=== PATIENT | female | born 1965 | race Caucasian/White ===

== ENCOUNTER 2019-12-03 12:59 | Emergency (ER) | payer BC, SELFPAY ==
--- NOTE | ~2019-12-03 | CT_ITS ---
EXAMINATION: CT brain wo con DATE: 12/03/2019 13:51 INDICATION: Confusion. Dizziness. TECHNIQUE: Computed tomography (CT) of the head was performed without intravenous contrast. The mA wa s adjusted according to patient size. Iterative reconstruction technique was employed. The dose-lengt h product was 605.33 mGy-cm. COMPARISON: None FINDINGS: There is no intracranial hemorrhage, acute infarction, or abnormal intracranial mass lesion . The ventricles are normal in size. There is mild mucosal thickening in the ethmoid sinuses. The mas toid air cells are normal. The orbits are normal. IMPRESSION: 1. Normal brain. Reviewed, dictated and finalized at location A. 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 Normal brain.
--- NOTE | ~2019-12-03 | XR_ITS ---
EXAMINATION: XR chest 2V DATE: 12/03/2019 13:56 INDICATION: Cough and dyspnea. TECHNIQUE: Frontal and lateral views of the chest were obtained. COMPARISON: Chest 2 views 10/14/2013 FINDINGS: There is mild scarring at the lung apices. No pleural effusion or pneumothorax. The heart s ize is normal. IMPRESSION: 1. Stable mild scarring at the lung apices. Reviewed, dictated and finalized at location A. 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
[2019-12-03 13:03] VITALS: BP 133/83; PULSE 102; RESP 16; TEMP 37.2; O2SAT 97
--- NOTE | 2019-12-03 13:10 | ED.FEVER ---
HPI - Fever General Chief Complaint: Fever Stated Complaint: flu b from [facility] Time Seen by Provider: 12/03/19 13:02 Source: patient and family Mode of arrival: ambulatory Limitations: no limitations History of Present Illness HPI Narrative: A 54 y/o female presents to the ED with c/o flu sx. Per patient's fiance, on 11/30/19 she started to have body aches, fever, chills, and N/V. Her fiance notes that she has not ate normally since 12/01/19 and has only had some tea and chicken broth. Today the patient was diagnosed with Influenza B at an urgent and sent to the ED due to the patient being disoriented and having trouble ambulating. Pt reports CP, productive cough, and hip pain. The cough produces a green phlegm. She does not note any aggravating or alleviating factors for her symptoms. Pt uses marijuana 1-2 times per week and drinks one glass of wine per night. MD elicited complaint: other (Flu sx) Onset (ago): day(s) (3) Exacerbating factors: nothing Relieving factors: nothing Associated symptoms: chills, cough (Productive), chest pain, nausea, vomiting and other (Body aches, fever, decreased food intake, hip pain, confusion, trouble ambulating) Related Data Allergies Allergy/AdvReac Type Severity Reaction Status Date / Time Sulfa (Sulfonamide Allergy Intermediate Dyspnea / Verified 12/10/15 03:40 Antibiotics) SOB STRAWBERRIES Allergy Intermediate Dyspnea / Uncoded 12/10/15 03:40 SOB EGGS Allergy Unknown Uncoded 12/09/15 22:55 GRASS Allergy Unknown Uncoded 12/09/15 22:55 POLLEN Allergy Unknown Uncoded 12/09/15 22:55 Review of Systems Review of Systems: Narrative: CONSTITUTIONAL: Denies sweats. Reports fever, chills, body aches, and decreased food intake. EYES: Denies visual changes, redness, or discharge. ENT: Denies rhinorrhea, congestion, sore throat, or otalgia. CARDIOVASCULAR: Denies palpitations or edema. Reports chest pain. RESPIRATORY: Denies dyspnea. Reports productive cough. GASTROINTESTINAL: Denies abdominal pain or diarrhea. Reports nausea and vomiting. SKIN: Denies rash or itching. MUSCULOSKELETAL: Denies back pain, joint pain, or myalgia. Reports hip pain. NEUROLOGIC: Denies headache, numbness, or weakness. Reports confusion and trouble ambulating. All systems reviewed & are unremarkable except as noted in HPI and below PMFSH Past Medical History Medical History (Updated 12/03/19 @ 16:42 by Karlee Horta MD) Anxiety Meningitis Seasonal allergies Shingles Surgical History Surgical History (Updated 12/03/19 @ 13:29 by Alexandra Yeager) History of appendectomy History of hysterectomy Social History Social History (Updated 12/03/19 @ 13:29 by Alexandra Yeager) Smoking status: Current every day smoker Tobacco type: cigarettes Second hand tobacco smoke exposure: Yes Alcohol intake: current Alcohol use details: 1 glass of wine per night Substance use: current Substance use type: marijuana Exam Narrative: Exam Narrative: GENERAL: Well-appearing, well-nourished, and in no acute distress. HEAD: Normocephalic, atraumatic. EYES: PERRLA and EOMI. ENT: Nares clear, no rhinorrhea or epistaxis. Mucous membranes moist. NECK: Supple. CHEST: Clear to auscultation. No respiratory distress. HEART: Regular rate and rhythm. No murmur heard. Normal peripheral pulses. ABDOMEN: Soft, nontender, nondistended, normal active bowel sounds. EXTREMITIES: Normal range of motion. No edema. SKIN: Warm, dry, no rash. NEURO: No focal deficits. Alert and oriented X3. Finger to nose intact bilaterally. EOMs intact without nystagmus. No facial droop/asymmetry noted bilaterally. Grimace intact. Intact sensation in face. Hearing intact bilaterally. Shoulder shrug intact. Strength 5/5 bilateral upper extremities. Strength 5/5 bilateral lower extremities. Reflexes 2+ patellar. Heel to ledesma intact bilaterally. Ambulatory exam deferred. Course Vital Signs Vital signs: Vital Signs Temperature 37.2 C 12/03/19 13:03 Pul
[2019-12-03 13:21] VITALS: RESP 16
--- NOTE | 2019-12-03 13:25 | ECG_ITS ---
Measurements Intervals [place] Rate: 79 P: 63 [place]: 139 QRS: 66 QRSD: 87 T: 67 QT: 390 QTc: 449 Interpretive Statements SINUS RHYTHM POSSIBLE LEFT ATRIAL ENLARGEMENT INCOMPLETE RIGHT BUNDLE BRANCH BLOCK BORDERLINE ECG Electronically Signed On 12-03-2019 16:16:42 CUSTOMER SOLUTIONS TEAMMATE by Fam Good D.O.
[2019-12-03 13:52] LABS: Basophils Absolute Auto 0.1 K/mm3 (0.0-0.1); Basophils Percent Auto 0.5 % (0.2-1.2); Hematocrit 43.2 % (37.0-47.0); Hemoglobin 14.9 g/dL (12.0-15.0); Immature Granulocyte Absolute 0.04 K/mm3 (0.00-0.031); Immature Granulocyte Percent A 0.3 % (0-0.5); Lymphocytes Absolute Auto 1.12 K/mm3 (0.9-3.2); Lymphocytes Percent Auto 9.3 % (18.3-44.2); Mean Corpuscular HGB Conc 34.5 g/dl (32-36); Mean Corpuscular Hemoglobin 34.7 pg (26-34); Mean Corpuscular Volume 100.5 fl (80-100); Monocytes Percent Auto 8.1 % (2.6-8.5); Neutrophils Absolute Auto 9.8 K/mm3 (1.3-6.7); Neutrophils Percent Auto 81.8 % (45.5-73.1); Platelet Count Result 284 k/mm3 (150-375); Red Cell Distribution Width 13.3 % (11.5-14.5)
[2019-12-03 14:04] LABS: Acetaminophen < 10 ug/mL (10-30); Ethanol < 10 mg/dL (<10); Lactic Acid Reflex 0.8 mmol/L (0.7-2.1); Salicylate < 1.0 mg/dL (2-20)
--- NOTE | 2019-12-03 14:15 | PC.NURSE ---
Pt refusing lumbar puncture. Necessity of the LP explained to pt by Dr. Horta and myself but she continues to refuse.
[2019-12-03 14:25] LABS: INR 0.9; Prothrombin Time 11.6 Seconds (11.1-14.7)
[2019-12-03 14:26] LABS: Partial Thromboplastin Time 28.5 SECONDS (22.3-36.8)
[2019-12-03 14:30] LABS: Alanine Aminotransferase 15 U/L (4-35); Albumin Level 3.9 g/dL (3.5-5.1); Alkaline Phosphatase 75 U/L (38-126); Aspartate Amino Transferase 27 U/L (14-36); Bilirubin,Total 0.3 mg/dL (0.2-1.3); Blood Urea Nitrogen 10 mg/dL (7-17); CRP 2.4 mg/dL (<1.0); Calcium 8.7 mg/dL (8.4-10.2); Carbon Dioxide 25 mmol/L (22-30); Chloride 96 mmol/L (98-107); Estimated Glomerular Filt Rate > 60; Glucose 105 mg/dL (65-105); Lipase 61 U/L (23-300); Potassium 3.6 mmol/L (3.4-5.0); Sodium 135 mmol/L (137-145)
[2019-12-03] MEDS: SODIUM CHLORIDE 0.9% IV 1,000 ML 999 ML IV CONT ×3 (14:30→15:25)
[2019-12-03] MEDS: KETOROLAC 15 MG/ML VIAL (*BKC) IV PUSH (14:30)
[2019-12-03] MEDS: ACETAMINOPHEN 500 MG TABLET 1000 MG PO (14:30)
[2019-12-03 16:18] VITALS: BP 137/85; PULSE 83; RESP 14; O2SAT 96
[2019-12-03 16:37] LABS: Add Urine Microscopic? YES; Appearance Urine Clear (Clear); Bacteria Urine Trace /hpf; Bilirubin Urine Negative (Negative); Blood Urine Negative (Negative); Color Urine Yellow (Yellow); Glucose Urine UA Negative (Negative); Ketones Urine Trace mg/dL (Negative); Leukocyte Esterase Ur Negative LEU/UL (Negative); Mucus Urine Rare /lpf; Nitrate Urine Negative (Negative); Protein Urine Negative (Negative); RBC Urine 0-2 /hpf (0-2); Squamous Epithelial Cell Urine Occasional /hpf (Few); Urobilinogen Urine Negative mg/dL (<2.0); WBC Urine 0-3 /hpf
[2019-12-03 16:56] LABS: Amphetamine Screen Urine Negative (Negative); Barbiturate Screen Urine Negative (Negative); Benzodiazepines Screen Urine Negative (Negative); Cannabinoid Screen Urine Positive (Negative); Cocaine Screen Urine Negative (Negative); Methadone Screen Urine Negative (Negative); Opiate Screen Urine Negative (Negative); Phencyclidine Screen Urine Negative (Negative)
[2019-12-03 17:05] VITALS: BP 128/86; PULSE 90; RESP 16; O2SAT 98
== END 2019-12-03 17:10 | disposition home or self-care (01) ==
PROVIDERS: Emergency Provider Emergency Medicine; PCP Family Medicine
DX: J10.1 Influenza due to other identified influenza virus with other respiratory manifestations (principal); E86.0 Dehydration; F17.210 Nicotine dependence, cigarettes, uncomplicated; I45.10 Unspecified right bundle-branch block; R94.31 Abnormal electrocardiogram [ECG] [EKG]
CPT/HCPCS: 36415; 70450; 71046; 80053; 80307; 81001; 83605; 83690; 85025; 85610; 85730; 86140; 87040; 93005; 96365; 96367; 96375; 99284; A9270; J0692; J1885; J3370; J7030

== ENCOUNTER 2020-02-14 10:55 | Outpatient (CLI) | payer BC, SELFPAY ==
--- NOTE | ~2020-02-14 | XR_ITS ---
XR chest 2V DATE: 02/14/2020 11:13 INDICATION: Cough, fever TECHNIQUE: PA and lateral views COMPARISON: 12/02/2021 view chest FINDINGS: Normal heart size. No hilar or mediastinal enlargement. No pulmonary infiltrate or consolid ation, pleural effusion or pulmonary vascular congestion or pneumothorax. IMPRESSION: No active cardiopulmonary disease Reviewed, dictated and finalized at location A.
== END 2020-02-14 10:56 | disposition home or self-care (01) ==
PROVIDERS: PCP Family Medicine; Visit Provider Family Medicine
DX: R05 Cough (principal); R50.9 Fever, unspecified
CPT/HCPCS: 71046

== ENCOUNTER 2022-01-12 11:54 | Outpatient (CLI) | payer BC, SELFPAY ==
--- NOTE | ~2022-01-12 | CT_ITS ---
EXAMINATION: CT brain wo con DATE: 01/12/2022 12:46 INDICATION: Altered mental status, unspecified. TECHNIQUE: Computed tomography (CT) of the head was performed without intravenous contrast. The mA wa s adjusted according to patient size. Iterative reconstruction technique was employed. The dose-lengt h product was 529.67 mGy-cm. COMPARISON: Head CT 12/03/2019 FINDINGS: There is no intracranial hemorrhage, acute infarction, or abnormal intracranial mass lesion . The ventricles are normal in size. The paranasal sinuses are clear. The orbits are normal. The mast oid air cells are normal. IMPRESSION: 1. Normal brain. Reviewed, dictated and finalized at location A. IMPRESSION: 1. Normal brain.
== END 2022-01-12 11:55 | disposition home or self-care (01) ==
PROVIDERS: PCP Family Medicine; Visit Provider Physician Assistant Medical
DX: R41.82 Altered mental status, unspecified (principal)
CPT/HCPCS: 70450

== ENCOUNTER 2023-02-01 11:47 | Emergency (ER) | payer BC, SELFPAY ==
[2023-02-01] VITALS (56 sets, daily range): BP systolic 105–157; BP diastolic 62–104; PULSE 72–115; RESP 12–27; O2SAT 90–100
--- NOTE | ~2023-02-01 | CT_ITS ---
EXAMINATION: CTA abdomen pelvis DATE: 02/01/2023 13:11 INDICATION: Suprapubic abdominal pain. Blood in stool. TECHNIQUE: Computed tomographic angiography (CTA) of the abdomen and pelvis was performed with 100 mL Omnipaque-350 intravenous contrast. Automated exposure control and iterative reconstruction techniqu e were employed. The dose-length product was 200.10 mGy-cm. Maximum intensity projection 3D-reconstru ctions of the aorta and other arteries were constructed by the technologist on a separate workstation . COMPARISON: CT abdomen and pelvis 12/09/15 FINDINGS: The visualized portions of the lung bases demonstrate minimal atelectasis. No pleural effus ion. The heart size is normal. No pericardial effusion. The liver, gallbladder, spleen, pancreas, adr enal glands, and kidneys are normal. There is wall thickening of the descending and sigmoid colon, co nsistent with colitis. There are no dilated loops of bowel. The appendix is not visualized. There are no pathologically enlarged lymph nodes. There is no free intraperitoneal fluid. There is calcified a therosclerosis of the aorta and many of the other arteries. There is no significant stenosis of shasta c axis, superior mesenteric artery, the renal arteries, or inferior mesenteric artery. There is mild lumbar spondylosis. IMPRESSION: 1. Colitis involving descending and sigmoid colon, which may be infectious colitis or ischemic coliti s. 2. No significant arterial occlusive disease. Reviewed, dictated and finalized at location A. IMPRESSION: 1. Colitis involving descending and sigmoid colon, which may be infectious coli tis or ischemic colitis. 2. No significant arterial occlusive disease.
--- NOTE | 2023-02-01 12:16 | ED.ABDPAIN ---
HPI - Abdominal Pain General Chief Complaint: Abdominal Pain Stated Complaint: lower abdominal pain/rectal bleeding Time Seen by Provider: 02/01/23 12:15 History of Present Illness HPI narrative: This is a 57-year-old female with past history of volvulus, who presents the emergency department with severe suprapubic pain and hematochezia beginning approximately 14 hours ago. The patient states she had sudden onset lower abdominal pain, described as cramping and sharp, without radiation, rated 10/10 and worse than labor. She also states she has had bowel movements with west blood and blood clots. She provides a picture of the same time stamped this morning, approximately 2 hours ago. Related Data Home Medications Medication Instructions Recorded Confirmed Adults Multivitamin 1 tablet DAILY 02/01/23 02/01/23 Claritin 1 tablet DAILY 02/01/23 02/01/23 ibuprofen 400 mg DAILY 02/01/23 02/01/23 Allergies Allergy/AdvReac Type Severity Reaction Status Date / Time strawberry Allergy Unknown Verified 02/01/23 11:58 Sulfa (Sulfonamide Allergy Unknown Verified 02/01/23 11:58 Antibiotics) Review of Systems Review of Systems: CONSTITUTIONAL: Denies fever, chills, or sweats. CARDIOVASCULAR: Denies chest pain, palpitations, or edema. RESPIRATORY: Denies cough or dyspnea. GASTROINTESTINAL: Suprapubic abdominal pain, nausea, vomiting, hematochezia GENITOURINARY: Denies dysuria or hematuria. SKIN: Denies rash or itching. MUSCULOSKELETAL: Denies back pain, joint pain, or myalgia. NEUROLOGIC: Denies headache, numbness, dizziness, or weakness. PSYCHIATRIC: Denies anxiety or depression. PMFSH Past Medical History Medical History (Updated 02/01/23 @ 18:21 by Jose Manuel Eckert MD) Volvulus Surgical History Surgical History (Updated 02/01/23 @ 12:19 by Jose Manuel Eckert MD) Status post hysterectomy Social History Social History (Updated 02/01/23 @ 12:19 by Jose Manuel Eckert MD) Smoking status: Current every day smoker Alcohol intake: current Substance use: current Substance use type: marijuana Exam Narrative: GENERAL: Well-developed, well-nourished, in moderate distress due to pain HEAD: Normocephalic, atraumatic. EYES: PERRLA and EOMI. ENT: Nares clear, no rhinorrhea or epistaxis. Mucous membranes moist. Oropharynx without tonsillar hypertrophy exudate or other lesions. CHEST: Clear to auscultation. No respiratory distress. No wheezes rales or rhonchi HEART: Regular rate and rhythm. No murmur heard. Normal peripheral pulses. ABDOMEN: Soft, tender to palpation in the suprapubic region, with passive guarding and rebound, nondistended RECTAL: (Chaperoned by female RN Minal) An external hemorrhoid is noted at the 6 o'clock position. There is no active bleeding. No blood, stool or significant pain noted on digital rectal exam. BACK: No CVA tenderness to palpation EXTREMITIES: Normal range of motion. No edema. SKIN: Warm, dry, no rash. NEURO: No focal deficits. Alert and oriented x3. PSYCH: Normal mood and affect. Course Course Emergency Course: 13:20 - CT angiogram of the abdomen pelvis demonstrates?colitis involving descending and sigmoid colon without arterial occlusive disease. CBC demonstrates white blood cell count elevation to 12 with a hemoglobin of 14.5 (unknown baseline) and platelets of 333. CMP unremarkable. VBG demonstrates mild respiratory alkalosis with pH of 7.44 and PCO2 of 35 9. Lactic acid 1.5. INR 0.9. Will give a dose of Zosyn, repeat hemoglobin, and contact GI at [facility] for potential transfer. 14:44 - Repeat hemoglobin unchanged at 14.8. Consultation with GI at [place] pending. The patient politely declines transfer to an alternate hospital. 15:22 - Discussed patient with GI, Dr. Cobos for consultation. 18:18 - Discussed patient with Hospitalist KELY Pacheco who accepts admission. 19:09 - EMS at bedside. Vital Signs Vital signs: Vital Signs Pu
[2023-02-01] MEDS: SODIUM CHLORIDE 0.9% IV 2,000 ML 999 ML IV CONT (12:30)
[2023-02-01] MEDS: ONDANSETRON INJ 4 MG/2 ML VIAL IV PUSH (12:30)
[2023-02-01] MEDS: HYDROmorphone HCL INJ (*CRX) 2 MG/ML VIAL 1 MG IV PUSH (12:31)
[2023-02-01 12:35] LABS: Basophils Absolute Auto 0.07 K/mm3 (0.00-0.10); Basophils Percent Auto 0.6 % (0.0-1.0); Eosinophils Absolute Auto 0.01 K/mm3 (0.02-0.50); Eosinophils Percent Auto 0.1 % (1.0-6.0); Hematocrit 43.3 % (35.0-49.0); Hemoglobin 14.5 g/dL (12.0-15.0); Immature Granulocyte Absolute 0.03 K/mm3 (0.00-0.00); Immature Granulocyte Percent A 0.2 % (0.0-0.0); Lymphocytes Absolute Auto 1.52 K/mm3 (1.10-4.50); Lymphocytes Percent Auto 12.6 % (18.0-42.0); Mean Corpuscular HGB Conc 33.5 g/dL (32.0-36.0); Mean Corpuscular Hemoglobin 34.9 pg (27.0-31.0); Mean Corpuscular Volume 104.1 fL (78.0-102.0); Mean Platelet Volume 8.8 fl (9.2-11.8); Monocytes Absolute Auto 0.97 K/mm3 (0.10-0.90); Neutrophils Absolute Auto 9.5 K/mm3 (1.7-7.2); Neutrophils Percent Auto 78.5 % (50.0-70.0); Platelet Count Result 333 K/mm3 (150-420); Red Blood Count 4.16 M/mm3 (4.20-5.40); Red Cell Distribution Width 12.9 % (11.6-14.4); White Blood Count 12.1 K/mm3 (4.8-10.8)
[2023-02-01 12:36] LABS: Device ROOM AIR; HCO3 VBG 24.1 mEq/l (24.0-30.0); PCO2 VBG 35.9 mmHg (42.0-48.0); pH VBG 7.44 (7.33-7.43)
[2023-02-01 12:50] LABS: Alanine Aminotransferase 21 U/L (14-59); Albumin Level 3.8 g/dL (3.4-5.0); Alkaline Phosphatase 80 U/L (46-116); Anion Gap 11 mmol/L (8-16); Aspartate Amino Transferase 15 U/L (15-37); Bilirubin,Total 0.5 mg/dL (0.00-1.00); Blood Urea Nitrogen 10 mg/dL (7-18); Carbon Dioxide 28 mmol/L (21-32); Chloride 101 mmol/L (98-108); Estimated Glomerular Filt Rate > 60; Glucose 158 mg/dL (70-99); INR 0.9; Lipase 17 U/L (16-77); Osmolality Calculated 292 mOsm/kg (285-295); Partial Thromboplastin Time 27.2 SEC (23.90-30.70); Potassium 3.5 mmol/L (3.5-5.1); Prothrombin Time 10.4 Seconds (9.50-12.10); Sodium 140 mmol/L (136-145); Total Protein 7.2 g/dL (6.4-8.2)
[2023-02-01 13:08] LABS: Lactic Acid Reflex 1.5 mmol/L (0.4-2.0)
--- NOTE | 2023-02-01 13:24 | PC.NURSE ---
Per ERP, repeat hgb to be drawn at 2 hours. microbiology lab technician aware. ERP at bedside discussing plan of care and potential transfer.
--- NOTE | 2023-02-01 13:53 | PC.NURSE ---
Pt updated. Lab will wait to draw blood cultures when repeat hgb is due. Antibiotics will be given after cultures are drawn.
[2023-02-01 14:39] LABS: Hematocrit 45.3 % (35.0-49.0); Hemoglobin 14.8 g/dL (12.0-15.0)
[2023-02-01] MEDS: HYDROmorphone HCL INJ (*CRX) 2 MG/ML VIAL 0.5 MG IV PUSH ×2 (14:50→19:06)
--- NOTE | 2023-02-01 15:01 | PC.NURSE ---
Dane Machine Group Leader states no beds available currently, but multiple discharges are pending. States it will most likely be later this evening before something is available. ERP at bedside discussing transfer options.
--- NOTE | 2023-02-01 17:30 | PC.NURSE ---
Spoke with Esther, Acetylene Torch Operator, who states he will be contacting hospitalist soon to get transfer started.
--- NOTE | 2023-02-07 12:47 | PC.NURSE ---
final blood cultures x2 reviewed. no growth after 5 days . no change in plan of care.
== END 2023-02-01 19:17 | disposition short-term general hospital (02) ==
PROVIDERS: Emergency Provider Preventive Medicine Aerospace Medicine; PCP Family Medicine
DX: K52.9 Noninfective gastroenteritis and colitis, unspecified (principal); R10.30 Lower abdominal pain, unspecified; R00.0 Tachycardia, unspecified; K92.1 Melena; F17.200 Nicotine dependence, unspecified, uncomplicated; F12.90 Cannabis use, unspecified, uncomplicated
CPT/HCPCS: 36415; 74174; 80053; 82803; 83605; 83690; 85014; 85018; 85025; 85610; 85730; 87040; 96361; 96365; 96375; 96376; 99285; J1170; J2405; J2543; J7030; Q9967

== ENCOUNTER 2023-02-01 19:49 | Observation (INO) | payer BC, SELFPAY ==
[2023-02-01 20:20] VITALS: BP 122/83; PULSE 81; RESP 14; TEMP 37.1; O2SAT 100; BMI 22.9
--- NOTE | 2023-02-01 20:20 | PM.IMHP ---
H&P: HPI History of Present Illness Date/Time: 02/01/23 20:20 Chief Complaint: Abdominal pain Narrative: This is a 57-year-old female patient who has no past medical history. It was noted that she may have possibly had volvulus in the past but no surgeries noted. The patient presented to [place] emergency room with complaints of severe suprapubic pain. She also had he med sheet the that began in the mill a night. The patient has not had any colonoscopies in the past. The patient had a sudden onset of lower abdominal pain that she described as a cramping short feeling that feels worse than being in labor. She rated her pain 10/10. She had normal bowel movements previously. And then in the middle the night she had west blood with clots. She denies any hemorrhoids internally or externally. Patient continued to have several bloody stools during the night. She also continue to have severe discomfort. The patient was given Dilaudid at [facility]. According to Dr. Sparks at [facility] her CT scan shows inflammatory colitis. Could be infectious. The patient tells me that she does have severe arthritis and that she had been taking Celebrex but it upset her stomach so she has been taking naproxen twice a day. Patient did have 1 emesis during the night but did not notice any blood. It was reported that the patient was tachycardic at [facility]. It was also reported that Dr. Cobos had been notified and agreed to see the patient if she came to [facility]. The patient is being admitted to [facility] observation status on the date of service of 02/01/2023. Review of Systems Review of Systems: All systems reviewed & are unremarkable except as noted in HPI and below Constitutional: Constitutional: Reports as per HPI and Reports no additional constitutional complaints Eyes: Eyes: Reports as per HPI and Reports no additional eye complaints ENT: Reports system reviewed and no additional complaints, except as documented and Reports Normal hearing present Cardiovascular: Cardiovascular: Reports no additional cardiovascular complaints Respiratory: Respiratory: Reports no additional respiratory complaints and Reports no additional respiratory complaints Gastrointestinal: Gastrointestinal: Reports as per HPI and Reports no additional gastrointestinal complaints Musculoskeletal: Musculoskeletal: Reports no additional musculoskeletal complaints Integumentary/Breasts: Skin/Breast: Reports system reviewed and no additional complaints, except as docu and Reports as per HPI Neurologic: Reports system reviewed and no additional complaints, except as documented, Reports as per HPI and Reports Normal hearing present Psychiatric: Psychiatric: Reports no additional psychiatric complaints and Reports as per HPI Endocrine: Endocrine: Reports no additional endocrine complaints Hematologic/Lymphatic: Hematologic/Lymphatic: Reports no additional hematologic/lymphatic complaints Allergic/Immunologic: Allergic/Immunologic: Reports no additional allergic/immunologic complaints PMFSH Past Medical History Medical History Altered mental state Anxiety Fall Meningitis Need for Tdap vaccination Seasonal allergies Shingles Surgical History Surgical History History of appendectomy History of hysterectomy Family History Family History (Updated 02/01/23 @ 20:31 by Tara Hackett NP) Mother Osteoarthritis Sibling Osteoarthritis Father Benign brain tumor Social History Social History (Updated 02/01/23 @ 20:36 by Tara Hackett NP) Social History: The patient stated that she does smoke a little more than a half pack a cigarettes a day and drinks 3 cans of beer a day. She has 1 daughter and is . The patient works at [employer] the [employer] department. Her ex- is a durable
--- NOTE | 2023-02-01 20:34 | ADMGEN ---
This patient, Serena Orellana, was admitted to [facility] Surg Room 306-01. Patient/family oriented to hospital policies and general routines including ID bracelet, bed and alarms, visiting hours, pain management, procedures, bathroom and other care routines, personal items, smoking policy, room service/diet, and visiting hours. Information on how to activate the Rapid Response Team has been discussed. Patient/Family are encouraged to report perceived risks to care and to ask questions if they do not understand what they are told or what they should do.
[2023-02-01 20:37] VITALS: PULSE 76; RESP 14; O2SAT 96
[2023-02-01] MEDS: HYDROmorphone HCL INJ (*CRX) 1 MG/ML SYR IV PUSH (20:53)
[2023-02-01 21:47] LABS: Hematocrit 40.6 % (37.0-47.0); Hemoglobin 13.4 g/dL (12.0-15.0)
[2023-02-01] MEDS: SODIUM CHLORIDE 0.9% IV 1,000 ML 100 ML IV CONT (22:02)
[2023-02-01] MEDS: FAMOTIDINE 20 MG/2 ML VIAL IV PUSH (22:02)
[2023-02-01] MEDS: metroNIDAZOLE 500 MG/ISO 100ML 500 MG/100 ML BAG 100 MG IVPB (22:30)
[2023-02-02] VITALS: BP 118/64; PULSE 76; PULSE 77; RESP 14; TEMP 36.5; O2SAT 96
[2023-02-02] MEDS: HYDROmorphone HCL INJ (*CRX) 1 MG/ML SYR IV PUSH (01:55)
[2023-02-02 01:59] LABS: Appearance Urine Cloudy (Clear); Bacteria Urine None Seen /hpf; Bilirubin Urine Negative (Negative); Blood Urine Negative (Negative); Color Urine Yellow (Yellow); Glucose Urine UA Negative (Negative); Ketones Urine Negative (Negative); Leukocyte Esterase Ur Trace LEU/UL (Negative); Nitrate Urine Negative (Negative); Non Pathogenic Casts 0-2; Protein Urine Negative (Negative); RBC Urine 0-2 /hpf (0-2); Squamous Epithelial Cell Urine Few /hpf (Few); Urobilinogen Urine 0.2 mg/dL (<2.0); pH Urine 5.5 (5.0-9.0)
[2023-02-02 02:18] LABS: Specific Grav Ur 1.039 (1.001-1.035)
[2023-02-02 02:19] LABS: Add Urine Microscopic? YES
[2023-02-02 04:00] VITALS: BP 117/73; PULSE 71; PULSE 85; RESP 14; TEMP 36.3; O2SAT 95
[2023-02-02 04:15] LABS: Basophils Absolute Auto 0.1 K/mm3 (0.0-0.1); Basophils Percent Auto 0.7 % (0.2-1.2); Eosinophils Absolute Auto 0.2 K/mm3 (0-0.3); Eosinophils Percent Auto 1.6 % (0-4.4); Hematocrit 37.5 % (37.0-47.0); Hemoglobin 12.4 g/dL (12.0-15.0); Immature Granulocyte Absolute 0.03 K/mm3 (0.00-0.031); Immature Granulocyte Percent A 0.3 % (0-0.5); Lymphocytes Absolute Auto 3.23 K/mm3 (0.9-3.2); Lymphocytes Percent Auto 29.6 % (18.3-44.2); Mean Corpuscular HGB Conc 33.1 g/dl (32-36); Mean Corpuscular Hemoglobin 35.1 pg (26-34); Mean Corpuscular Volume 106.2 fl (80-100); Mean Platelet Volume 9.1 fl (7.4-10.4); Monocytes Percent Auto 9.1 % (2.6-8.5); Neutrophils Absolute Auto 6.4 K/mm3 (1.3-6.7); Neutrophils Percent Auto 58.7 % (45.5-73.1); Platelet Count Result 286 k/mm3 (150-375); Red Blood Count 3.53 M/mm3 (4.2-5.4); Red Cell Distribution Width 13.2 % (11.5-14.5); White Blood Count 10.9 K/mm3 (4.5-10.0)
[2023-02-02 04:27] LABS: Alanine Aminotransferase 16 U/L (6-35); Albumin Level 3.7 g/dL (3.5-5.1); Alkaline Phosphatase 61 U/L (38-126); Anion Gap 2 mmol/L (8-16); Aspartate Amino Transferase 20 U/L (14-36); Bilirubin,Total 0.9 mg/dL (0.2-1.3); Blood Urea Nitrogen 8 mg/dL (7-17); Calcium 8.2 mg/dL (8.4-10.2); Carbon Dioxide 27 mmol/L (22-30); Chloride 107 mmol/L (98-107); Estimated Glomerular Filt Rate > 60; Glucose 110 mg/dL (65-110); Magnesium 2.1 mg/dL (1.6-2.3); Potassium 3.3 mmol/L (3.4-5.0); Sodium 136 mmol/L (137-145)
[2023-02-02 04:40] LABS: Lactic Acid Reflex 0.8 mmol/L (0.7-2.0)
[2023-02-02] MEDS: metroNIDAZOLE 500 MG/ISO 100ML 500 MG/100 ML BAG 100 MG IVPB (05:58)
[2023-02-02 08:00] VITALS: BP 130/68; PULSE 75; RESP 16; TEMP 36.6; O2SAT 100
--- NOTE | 2023-02-02 08:15 | PC.NURSE ---
Greeted patient and attempted assessment. Patient oriented to person, place, time, situation and independent in the room. Patient is extremely frustrated not understanding why she cannot be seen right now by all of the doctors and get her situation fixed right now. M48 M60 Armor Crewman explained the process to the patient and that the doctors have several patients that they see in a shift and they will be here to see her once they are available. M48 M60 Armor Crewman went over medications scheduled to give this AM. Patient stated she does not need the pepcid as she is fine. M48 M60 Armor Crewman asked patient if she wanted a nicotine patch. Patient stated if she wants to smoke she will go outside and do so. M48 M60 Armor Crewman explain that the hospital does not allow patients to leave the floor while they have IV access. Patient responded that she will just take her IV out herself then. Patient then stated that she will be leaving and she will be setting up her own appointment today with her primary care physician. M48 M60 Armor Crewman explained to the patient that she has the right to make her own medical decisions although hospital staff encourages her greatly to stay for treatment as she has been admitted for treatment, a GI consultation put in, and currently has a low potassium level this AM. Patient stated she did not care and that she still wanted to leave. M48 M60 Armor Crewman presented patient with AMA papers. Patient and press writer both signed papers. IV access was removed. Patient walked herself out.
== END 2023-02-02 09:00 | disposition left against medical advice (07) ==
PROVIDERS: Nurse Practitioner; Admitting Provider Hospitalist; PCP Family Medicine; Visit Provider Physician Assistant
DX: Z53.29 Procedure and treatment not carried out because of patient's decision for other reasons (principal); K92.2 Gastrointestinal hemorrhage, unspecified; K52.9 Noninfective gastroenteritis and colitis, unspecified; R00.0 Tachycardia, unspecified; R41.82 Altered mental status, unspecified; F41.9 Anxiety disorder, unspecified; F17.210 Nicotine dependence, cigarettes, uncomplicated; F10.20 Alcohol dependence, uncomplicated; F12.90 Cannabis use, unspecified, uncomplicated; Z86.61 Personal history of infections of the central nervous system; Z79.1 Long term (current) use of non-steroidal anti-inflammatories (NSAID); Z79.51 Long term (current) use of inhaled steroids
CPT/HCPCS: 36415; 80053; 81001; 83605; 83735; 84443; 85014; 85018; 85025; 86850; 86900; 86901; 87040; 87086; 96365; 96366; 96375; 96376; G0378; G0379; J1170; J7030

== ENCOUNTER 2023-02-22 16:04 | Outpatient (CLI) | payer BC, SELFPAY ==
[2023-02-22 17:59] LABS: Ferritin 208 ng/mL (8-252); Iron 53 ug/dL (50-170); Percent Iron Saturation 25 % (12-57); Vitamin B12 1164 pg/mL (193-986)
[2023-02-23 02:01] LABS: Folic Acid > 20.0 ng/mL (8.6->20)
== END 2023-02-22 16:05 | disposition home or self-care (01) ==
LOC: CHSLAB 16:07
PROVIDERS: PCP Nurse Practitioner Family; Visit Provider Internal Medicine Gastroenterology
DX: R79.9 Abnormal finding of blood chemistry, unspecified (principal)
CPT/HCPCS: 36415; 82525; 82607; 82728; 82746; 83540; 83550

== ENCOUNTER 2023-03-03 12:26 | Outpatient (CLI) | payer BC, SELFPAY ==
[2023-03-03 12:45] LABS: Basophils Absolute Auto 0.08 K/mm3 (0.00-0.10); Basophils Percent Auto 0.7 % (0.0-1.0); Eosinophils Absolute Auto 0.11 K/mm3 (0.02-0.50); Hematocrit 45.6 % (35.0-49.0); Hemoglobin 15.1 g/dL (12.0-15.0); Immature Granulocyte Absolute 0.03 K/mm3 (0.00-0.00); Immature Granulocyte Percent A 0.3 % (0.0-0.0); Lymphocytes Absolute Auto 2.24 K/mm3 (1.10-4.50); Lymphocytes Percent Auto 20.3 % (18.0-42.0); Mean Corpuscular HGB Conc 33.1 g/dL (32.0-36.0); Mean Corpuscular Hemoglobin 34.2 pg (27.0-31.0); Mean Corpuscular Volume 103.4 fL (78.0-102.0); Mean Platelet Volume 8.7 fl (9.2-11.8); Monocytes Absolute Auto 0.59 K/mm3 (0.10-0.90); Monocytes Percent Auto 5.3 % (2.0-11.0); Neutrophils Percent Auto 72.4 % (50.0-70.0); Platelet Count Result 395 K/mm3 (150-420); Red Blood Count 4.41 M/mm3 (4.20-5.40); White Blood Count 11.1 K/mm3 (4.8-10.8)
== END 2023-03-03 12:27 | disposition home or self-care (01) ==
LOC: CHSLAB 12:28
PROVIDERS: PCP Nurse Practitioner Family; Visit Provider Nurse Practitioner Family
DX: K52.9 Noninfective gastroenteritis and colitis, unspecified (principal)
CPT/HCPCS: 36415; 85025

== ENCOUNTER 2025-05-21 12:58 | Emergency (ER) | payer BC, SELFPAY ==
[2025-05-21] VITALS (26 sets, daily range): BP systolic 107–189; BP diastolic 73–123; PULSE 87–110; RESP 18–26; TEMP 36.6; O2SAT 95–99
--- NOTE | ~2025-05-21 | XR_ITS ---
EXAMINATION: XR chest 2V 05/21/2025 13:58 INDICATION: Heaviness. Chest pain radiates to left side of the neck. Tachycardia COMPARISON: 02/14/2020 FINDINGS: The lungs are clear. The cardiomediastinal silhouette is within normal limits. There are no pleural effusions. There is no pneumothorax suspected. IMPRESSION: 1: NO ACUTE CARDIOPULMONARY DISEASE. Reviewed, dictated and finalized at location A.
--- NOTE | 2025-05-21 13:12 | ECG_ITS ---
Test Date: 2025-05-21 13:06:39 Measurements Intervals [place] Rate: 106 P: 85 [place]: 132 QRS: 66 QRSD: 86 T: 74 QT: 335 QTc: 445 Interpretive Statements SINUS TACHYCARDIA POSSIBLE RIGHT VENTRICULAR CONDUCTION DELAY MINIMAL Q WAVES- ANTEROLAT/INF LEADS BASELINE ARTIFACT- I, II, AVR, AVL ABNORMAL ECG No previous ECG available for comparison Electronically Signed On 05-21-2025 13:35:33 CDT by Fam Good D.O.
--- NOTE | 2025-05-21 13:15 | ED.CHESTPAIN ---
HPI - Chest Pain General Chief Complaint: Chest Pain Stated Complaint: Chest Pain Time Seen by Provider: 05/21/25 13:15 Source: patient and EMS Mode of arrival: EMS Limitations: no limitations History of Present Illness HPI narrative: Patient is a 59-year-old female with acute onset of some chest pain that radiated to her left jaw and teeth this morning. The pain continued for a few hours and she came to the ER for evaluation. She called EMS for her elevated heart rate and blood pressure. MD complaint: chest pain Pertinent past history: other ( None) Onset (ago): day(s) ( 1) Timing of current episode: episodic Prior episodes: No Onset: during rest, during exertion and after eating Pain location: substernal, left chest, right chest and lateral Pain radiation: left arm, neck ( left), jaw/teeth and left shoulder Severity: moderate Pain scale (0-10): 5 Quality: sharp Relieving factors: nothing Exacerbating factors: nothing Context: other ( patient having chest pain that radiates up to the neck for the past day and impending doom sensation) Associated symptoms: sense of impending doom and palpitations Treatment prior to arrival: none Risk Factors Coronary artery disease risk factors: smoking history Related Data On Oral Contraceptives: No Home Medications ?Medication ?Instructions ?Recorded ?Confirmed ?Last Taken ?Type Adults Multivitamin 1 tablet PO DAILY 02/01/23 05/21/25 05/21/25 History Allergies Allergy/AdvReac Type Severity Reaction Status Date / Time Sulfa (Sulfonamide Allergy Intermediate Dyspnea / Verified 05/21/25 13:08 Antibiotics) SOB grass pollen Allergy Itching Verified 05/21/25 13:08 Review of Systems Review of Systems: All systems reviewed & are unremarkable except as noted in HPI and below Constitutional: Constitutional: Reports no additional constitutional complaints Eyes: Eyes: Reports no additional eye complaints ENT: Reports system reviewed and no additional complaints, except as documented Cardiovascular: Cardiovascular: Reports no additional cardiovascular complaints Respiratory: Respiratory: Reports no additional respiratory complaints Gastrointestinal: Gastrointestinal: Reports no additional gastrointestinal complaints Genitourinary: Genitourinary: Reports no additional female genitourinary complaints Musculoskeletal: Musculoskeletal: Reports no additional musculoskeletal complaints Integumentary/Breasts: Skin/Breast: Reports system reviewed and no additional complaints, except as docu Neurologic: Reports system reviewed and no additional complaints, except as documented Psychiatric: Psychiatric: Reports no additional psychiatric complaints Endocrine: Endocrine: Reports no additional endocrine complaints Hematologic/Lymphatic: Hematologic/Lymphatic: Reports no additional hematologic/lymphatic complaints Allergic/Immunologic: Allergic/Immunologic: Reports no additional allergic/immunologic complaints PMFSH Past Medical History Medical History Volvulus Need for Tdap vaccination Fall Altered mental state Shingles Anxiety Meningitis Seasonal allergies Surgical History Surgical History Status post hysterectomy History of hysterectomy History of appendectomy Family History Family History Mother Osteoarthritis Sibling Osteoarthritis Father Benign brain tumor Social History Social History Social History: The patient stated that she does smoke a little more than a half pack a cigarettes a day and drinks 3 cans of beer a day. She has 1 daughter and is . The patient works at [employer]. Her ex- is a durable power contracts attorney for healthcare. Code status full code Smoking status: Current every day smoker Tobacco type: cigarettes Second hand tobacco smoke exposure: Yes Alcohol intake: current Drinks per week: 21 Alcohol use details: 1 glass of wine per night Substance use: current Substance use type: marijuana Lack of Transportation: No Lack of Food: Never True Current Housing: I Have Housing Concerned About Future Housing: No Difficulty Paying Gas/Electric Bills: No Difficulty Paying for Meds: No Currently Unemployed: No Education: High School Diploma/GED Difficulty w/ Childcare or Family Care: No Spiritual care concerns: No Exam Const: General: healthy appearing Nutritional Appearance: well nourished Orientation/consciousness: patient oriented x3 Limitations: no limitations Other: patient appears anxious HENMT: Head: normal to inspection Ears: external ears normal Face/Nose/Sinus: Normal external nose present Eyes: Conjunctivae: conjunctivae normal Pupils: Equal, round and reactive pupils present EOM: EOMs intact bilaterally Neck: Neck: normal visual inspection Chest: Chest palpation & inspection: normal inspection of the chest Resp: Effort & Inspection: normal respiratory effort and not labored Auscultation: clear to auscultation bilaterally and no crackles Cardio: Rate: regular rate Rhythm: regular rhythm Heart sounds: no murmurs GI: Inspection: non-distended Auscultation: normal bowel sounds : General: Yes bladder normal to palpation Back/Spine/Pelvis: Back: no CVA tenderness Skin: General skin exam: normal color Rashes: no rashes Wounds: no wounds Neuro: General: patient oriented x3 Cranial nerves: Yes Nystagmus not present Speech: normal speech Gait exam (Neuro): Normal gait present Extrem: General: normal to inspection Psych: Mental Status: mental status grossly normal Affect: normal affect Attitude: cooperative Course Vital Signs Vital signs: Vital Signs Temperature 36.6 C 05/21/25 13:03 Pulse Rate 110 H 05/21/25 13:03 Respiratory Rate 20 05/21/25 13:03 Blood Pressure 189/123 H 05/21/25 13:03 Pulse Oximetry 99 05/21/25 13:03 Oxygen Delivery Room Air 05/21/25 13:03 Temperature 36.6 C 05/21/25 13:03 Pulse Rate 87 05/21/25 16:01 Respiratory Rate 19 05/21/25 13:45 Blood Pressure 156/73 H 05/21/25 16:01 Pulse Oximetry 98 05/21/25 16:01 Oxygen Delivery Room Air 05/21/25 13:15 MDM - Chest Pain MDM Narrative Medical decision making narrative: patient is a 59-year-old female with chest pain and impending doom. We will do a cardiac workup at this time. Lab Data Attestation: I reviewed the patient's lab results. 05/21/25 13:28 05/21/25 13:28 Labs: Lab Results 05/21/25 05/21/25 Range/Units 13:28 13:35 WBC 8.3 (4.8-10.8) K/mm3 RBC 4.28 (4.20-5.40) M/mm3 Hgb 14.9 (12.0-15.0) g/dL Hct 43.7 (35.0-49.0) % MCV 102.1 H (78.0-102.0) fL MCH 34.8 H (27.0-31.0) pg MCHC 34.1 (32-36) g/dL RDW 13.0 (11.6-14.4) % Plt Count 341 (150-420) K/mm3 MPV 8.9 L (9.2-11.8) fl Immature Gran % (Auto) 0.4 H (0.0-0.0) % Neut % (Auto) 63.0 (50.0-70.0) % Lymph % (Auto) 25.8 (18.0-42.0) % Bollinger % (Auto) 9.0 (2.0-11.0) % Eos % (Auto) 0.8 L (1.0-6.0) % Baso % (Auto) 1.0 (0.0-1.0) % Lymph # (Auto) 2.14 (1.10-4.50) K/mm3 Bollinger # (Auto) 0.75 (0.10-0.90) K/mm3 Eos # (Auto) 0.07 (0.02-0.50) K/mm3 Baso # (Auto) 0.08 (0.00-0.10) K/mm3 Abs Immat Gran (auto) 0.03 H (0.00-0.00) K/mm3 Absolute Neuts (auto) 5.23 (1.70-7.20) K/mm3 Absolute Nucleated RBC 0.00 (0.00-0.00) K/mm3 Nucleated RBC % 0.0 (0-0.0) % PT 10.3 (9.50-12.1) Seconds INR 0.9 APTT 26.3 (23.9-30.70) Sec D-Dimer 0.19 (0.19-0.50) mg/L Sodium 138 (137-145) mmol/L Potassium 4.0 (3.4-5.0) mmol/L Chloride 104 (98-107) mmol/L Carbon Dioxide 23 (22-30) mmol/L Anion Gap 11 (4-12) mmol/L BUN 10 (7-17) mg/dL Creatinine 0.54 L (0.7-1.0) mg/dL Estim Creat Clear Calc Not Reportable Estimated GFR > 60 (59 - ) Glucose 110 (65-110) mg/dL Calculated Osmolality 286 (285-295) mOsm/kg Calcium 9.4 (8.4-10.2) mg/dL Total Bilirubin 1.1 (0.2-1.3) mg/dL AST 35 (14-36) U/L ALT 24 (6-35) U/L Alkaline Phosphatase 98 (38-126) U/L Troponin I < 0.012 (0.000-0.034) ng/mL Total Protein 7.6 (6.3-8.2) g/dL Albumin 4.6 (3.5-5.1) g/dL Lipase 64 (23-300) U/L Urine Color Light yellow (Yellow) Urine Appearance Clear (Clear) Urine pH 6.0 (5.0-8.0) Ur Specific [place]on 1.010 (1.010-1.020) Urine Protein Negative (Negative) Urine Glucose (UA) Negative (Negative) Urine Ketones 1+ H (Negative) Ur Blood (Man) Negative (Negative) Urine Nitrate Negative (Negative) Urine Bilirubin Negative (Negative) Urine Urobilinogen 0.2 (0.2-1.0) mg/dL Leukocyte Esterase Rfl Negative (Negative) OCTAVIO/UL Imaging Data Attestation: I personally reviewed and interpreted this imaging study as follows: Radiologist's impression: Chest x-ray is negative for acute process ECG Data EKG #1: Attestation: I personally reviewed and interpreted this ECG as follows: ECG completion date: 05/21/25 ECG completion time: 21:14 EKG Interpretation: tachycardia, sinus rhythm, no ectopy, non-specific ST changes, normal QRS, normal QT and NL axis Discharge Plan Discharge Clinical Impression: Paroxysmal sinus tachycardia, Atypical chest pain Patient Disposition: Home Condition: Stable Instructions: Chest Pain (ED), Atrial Tachycardia (DC) Additional Instructions: please follow-up with primary doctor in the next week. Come back to the emergency room with recurrent events similar to today. You will need a pvc monitor ordered by the primary doctor or wafer production lead worker to look for recurrent events similar to today. At this time, it is unclear what the rhythm occurred except a sinus tachycardia event. Further workup needs to be done on the heart. Patient Language: Citizen Of [place] Prescriptions: No Action Adults Multivitamin 1 tablet PO DAILY Follow-up/Referrals: Cedric,iMnal Morris APRN [Primary Care Provider] - Stand Alone Forms: Work/School Release IP Time of Disposition: 16:18
[2025-05-21 13:33] LABS: Hematocrit 43.7 % (35.0-49.0); Hemoglobin 14.9 g/dL (12.0-15.0); Immature Granulocyte Percent A 0.4 % (0.0-0.0); Lymphocytes Absolute Auto 2.14 K/mm3 (1.10-4.50); Mean Corpuscular HGB Conc 34.1 g/dL (32-36); Mean Corpuscular Hemoglobin 34.8 pg (27.0-31.0); Mean Corpuscular Volume 102.1 fL (78.0-102.0); Nucleated Red Blood Cells Absolute Auto 0.00 K/mm3 (0.00-0.00); Nucleated Red Blood Cells Perc 0.0 % (0-0.0); Platelet Count Result 341 K/mm3 (150-420); Red Blood Count 4.28 M/mm3 (4.20-5.40); White Blood Count 8.3 K/mm3 (4.8-10.8)
--- OUTSIDE RECORDS SUMMARY | 2025-05-21 13:35 | XMS_ITS | Clinical Summary ---
Author Organization [facility] Address [address] [place] [id number] Care Team Providers Care Business Change Manager Name Role Phone Minal Steele [employer] Primary Care Provide r Allergies Active Allergy Reactions Criticality Noted Date Comments Hydromorphone Hallucinations Medium 02/23/2023 [place] Hives Medium 02/23/2023 Sulfa (Sulfonamide Antibiotics) Shortness of breath High 02/23/2023 Medications polyethylene glycol (GoLYTELY) 236-22.74-6.74 -5.86 gram solutionIndication s:Bowel Evacuation Drink 2L at 6:00 pm night before procedure and 2L at 7:30 am morning of procedure per mailed prep instructions. 4000 mL 3 Active diphenhydrAMINE 25 mg capsule Take 1 tablet/capsul e (25 mg total) by mouth every 6 (six) hours as needed Active loratadine (CLARITIN) 10 mg tablet Take 1 tablet (10 mg total) by mouth daily Active pantoprazole DR (PROTONIX) 20 mg EC tablet 3 Active dicyclomine (BENTYL) 10 mg capsule Take 1 capsule (10 mg total) by mouth 4 times daily 3 Active ondansetron ODT (ZOFRAN-ODT) 4 mg disintegrating tablet Take 1 tablet (4 mg total) by mouth every 8 (eight) hours as needed 3 Active FA/mv,Ca,iron,min/ lycopene/lut (MULTIVITAL ORAL) Take by mouth Active Active Problems No known active problems Surgical History Surgery Date Site/Laterality Comments COLONOSCOPY HYSTERECTOMY Medical History Medical History Date Comments Colon polyp Colonic volvulus (HCC) Social History Tobacco Use Types Packs/Day Years Used Date Smoking Tobacco: Every Day Cigarettes Tobacco Cessation:Ready to Q uit: Not Asked; Counseling Given: Not Answered Personal Safety Answer Date Recorded Getting School Help Needed Not on file 04/06 Comments No Sex and Gender Information Value Date Recorded Sex Assigned at Not on file Legal Sex Female 9:57 AM CDT Gender Identity Not on file Sexual Orientation Not on file Obstetrics History Last Filed Vital Signs Vital Sign Reading Time Taken Comments Blood Pressure 131/74 03/15/2023 3:34 PM CDT Pulse 80 03/15/2023 3:34 PM CDT Temperature 36 C (96.8 F) 03/15/2023 2:34 PM CDT Respiratory Rate 15 03/15/2023 3:34 PM CDT Oxygen Saturation 95% 03/15/2023 3:34 PM CDT Inhaled Oxygen Concentration - - Weight 45.4 kg (100 lb) 03/15/2023 1:03 PM CDT Height 147.3 cm (4' 10) 03/15/2023 1:03 PM CDT Body Mass Index 20.9 03/15/2023 1:03 PM CDT Plan of Treatment Health Maintenance Due Date Last Done Comments Breast Cancer Screening-Mammogram 1965 Depression Screening 1965 Hepatitis C Screening 1965 Hepatitis B Screening 1981 Regular Well Visit/Exam 18-64 1981 Pneumococcal vaccine <65 (1 of 2 - PCV) 1982 Zoster Vaccine (1 of 2) 2013 Covid-19 Vaccine (4 - 2023-2 5 season) 2024 03/20/2022, 08/14/2021, 11/13/2020 Influenza Vaccine (#1) 2025 , 07/14/2022, 07/21/2021, Additional history exists DTaP/Tdap/Td Vaccine (2 - Td or Tdap) 01/13/2032 01/12/2022 Colon Cancer Screening-Colonoscopy 03/15/20332022 Procedures Procedure Name Priority Date/Time Associated Diagnosis Comments COLONOSCOPY 03/15/2023 1:34 PM CDT from Last 3 Months or Most Recently Relevant to Health Maintenance Results * COLONOSCOPY (03/15/2023 1:34 PM CDT) Anatomical Region Laterality Modality Other Narrative Procedure Note Amanda Farr MD - 03/15/2023 1:34 PM CDT [facility] Patient Name: Serena Orellana Procedure Date: 03/15/2023 1:34 PM Date of : 1965 Admit Type: Outpatient Age: 57 Gender: Female Attending MD: Amanda Farr M.D. Room: [facility] ENDOSCOPY ROOM 9 Note Status: Finalized Procedure: Colonoscopy Indications: For therapy of a large colon polyp in the sigmoid. Patient with intermittent rectal bleeding. Referring MD: Lonnie Wheat D.O. Providers: Amanda Farr M.D. Medicines: Monitored Anesthesia Care Complications: No immediate complications. Estimated Blood Loss: Estimated blood loss: none. Procedure: Pre-Anesthesia Assessment: - Prior to the procedure, a History and Physicalwas performed, and patient medications, allergies and sensitivities were reviewed. The patient'stolerance of previous anesthesia was reviewed. - The risks and benefits of the procedure and the sedation options and risks were discussed with the patient. All questions were answered and informed consent was obtained. - Patient identification and proposed procedurewere verified prior to the procedure by the physician,the nurse and the mold stamper. The procedure wasverified in the procedure room. - Immediately prior to administration ofmedications, the patient was re-assessed for adequacy to receive sedatives. The benefits, risks and alternatives of theprocedure and sedation were discussed and informed consentwas obtained. All questions were answered. Please referto the signed informed consent document in the medical record. The scope was passed under direct vision.The CF [id number] endoscope was introduced through the anus and advanced to the cecum, identified by appendiceal orifice and ileocecal valve. The colonoscopy was technically difficult and complex.The quality of the bowel preparation was good. Thebowel preparation used was GoLYTELY. Findings: A 30 mm polyp was found in the sigmoid colon. The polyp was pedunculated. The stalk was very thick. A large endoloop wasmaneuvered over the polyp stalk and closed at the mucosal attachments to control bleeding. Resection and retrieval were complete. To prevent bleeding post-intervention, one hemostatic clip was successfully placed (MR conditional). Clip network intelligence analyst: [employer]. There was no bleeding during, or at the end, of the procedure. The exam was otherwise normal throughout the examined colon. Impression: - One 30 mm polyp in the sigmoid colon. Resectedand retrieved. Clip (MR conditional) was placed. Clip network intelligence analyst: [employer]. - The colonoscopy was otherwise normal. Recommendation: - Discharge patient to home. - Await pathology results. - In the unusual situation that you developabdominal pain, bleeding or other significant problems in the days following this procedure please call my officeat [phone] to speak to my nurses. After hours and evenings please call [phone] and speak to theGI fellow doorperson or luggage porter. Please tell them that Dr. Farr did your procedure and that your were instructed tohave the fellow call me or the physician covering for meto discuss the management of your condition. If youhave an urgent problem, [facility] and have the ER doctor call my office duringthe day or the GI Fellow after hours and weekends to arrange admission or transfer to our facility. - Call GI office nurse at [phone]) for final pathology results in 7 days - Full liquid diet today then advance the diet. - Repeat colonoscopy in 1 year for surveillance. - Follow up with your physicians as scheduled. Electronically signed by Amanda Farr MD Amanda Farr M.D. 03/15/2023 2:40:58 PM Number of Addenda: 0 Note Initiated On: 03/15/2023 1:34 PM Recognized by the [employer] for promoting quality in endoscopy Amanda Farr MD ENDOSCOPY PROCEDURES Final Resul t from Last 3 Months or Most Recently Relevant to Health Maintenance [place] Care Teams Business Change Manager Relationship Specialty [place] [address] [address] [address] PCP - General Nurse Practitioner 03/11/23
--- OUTSIDE RECORDS SUMMARY | 2025-05-21 13:35 | XMS_ITS | Clinical Summary ---
Author Organization [facility] Address [address] [place] [id number] Care Team Providers Care Language Therapist Name Role Phone Minal Steele NP Primary Care Provider + [phone] Allergies Active Allergy Reactions Criticality Noted Date Comments Hydromorphone Hallucinations 02/10/2023 Strawberries Hives Medium 03/02/2023 Sulfa Antibiotics Anaphylaxis,Shortness of Breath High 02/02/2023 Medications diphenhydrAMINE (BENADRYL) 25 MG capsule Take 1 capsule (25 mg total) by mouth every 6 (six) hours as needed for Itching. Active loratadine (CLARITIN) 10 MG tablet Take 1 tablet (10 mg total) by mouth daily. Active multi vitamin/minerals (THERA-M ENHANCED) tablet Take 1 tablet by mouth daily. Active B Complex Cap capsule Take 1 capsule by mouth daily. Active gabapentin (NEURONTIN) 100 MG capsuleIndicatio ns:Acute right-sided low back pain with right-sided sciatica Take 1 capsule (100 mg total) by mouth 3 (three) times daily. 90 capsule 2 4 Active fexofenadine (MARIE) 180 MG tablet Take 1 tablet (180 mg total) by mouth daily. Active lactobacillus (CULTURELLE) capsule Take 1 capsule by mouth daily. Active azithromycin (ZITHROMAX) 250 MG tabletIndication s:Pneumonia due to infectious organism, unspecified laterality, unspecified part of lung TAKE 2 TABS PO DAY 1 THEN 1 TABLET DAILY 6 tablet 5 Active fluticasone-salm eterol (ADVAIR DISKUS) 250-50 MCG/ACT inhalerIndicatio ns:Pneumonia due to infectious organism, unspecified laterality, unspecified part of lung Inhale 1 puff into the lungs 2 (two) times daily. 60 capsule 5 Active albuterol sulfate HFA 108 (90 Base) MCG/ACT inhalerIndicatio ns:Pneumonia due to infectious organism, unspecified laterality, unspecified part of lung Inhale 2 puffs into the lungs every 6 (six) hours as needed for Wheezing or Shortness of breath. 18 g 5 Active Active Problems Problem Noted Date Diagnosed Date Colitis 03/02/2023 Mild anxiety 03/02/2023 Alcohol dependence with unsp ecified alcohol-induced disorder ([facility]) 03/02/2023 Cigarette nicotine dependenc e with nicotine-induced disorder 03/02/2023 Sepsis ([facility]) 02/02/2023 Resolved Problems Problem Noted Date Diagnosed Date Resolved Date Screening for colon cancer 06/21/2024 0 06/26/2024 Screening for colon cancer 06/21/2024 1 Immunizations Immunization Administration Dates Next Due Influenza (Generic) 07/20/2024,07/04/2020 Influenza Adult (Generic) 07/29/2023,07/14/2022, 07/21/2021 PFIZER COVID-19 (WEI CAP), MRNA, LNP-S, PF, 30 MCG/0.3 ML ALEXANDER-SUCROSE, IM 03/20/2022 PFIZER COVID-19 (ORIGINAL FO RMULATION, PURPLE CAP) mRNA, LNP-S, PF, 30 MCG/0.3 ML DOSE 08/14/2021,11/13/2020 Tdap (Generic) 01/12/2022 Family History Medical History Relation Comments Heart Disease Father massive IA Father Arthritis Mother Arthritis Sister Relation Status Comments Father Mother Alive Sister Alive Social History Tobacco Use Types Packs/Day Years Used Date Smoking Tobacco: Every Day Cigarettes 0.3 40 Smokeless Tobacco: Never Tobacco Cessation:Ready to Q uit: No; Counseling Given: Yes Alcohol Use Standard Drinks/Week Comments Yes 11.7 (1 standard dri nk = 0.6 oz pure alcohol) two or three beers at night when I get home from work Humiliation, Afraid, Rape, and Kick questionnair e Answer Date Recorded Within the last year, have y ou been afraid of your partner or ex-partner? No 02/02/2023 Within the last year, have y ou been humiliated or emotionally abused in other ways by your partner or ex-partner? No Within the last year, have y ou been kicked, hit, slapped, or otherwise physically hurt by your partner or ex-partner? No 02/02/2023 Within the last year, have y ou been raped or forced to have any kind of sexual activity by your partner or ex-partner? No 02/02/2023 Social Connection and Isolat ion Panel [NHANES] Answer Date Recorded In a typical week, how many times do you talk on the phone with family, friends, or neighbors? More than three times a week 02/02/2023 How often do you get togethe r with friends or relatives? Three times a week 02/02/2023 How often do you attend [facility] or methodist services? 1 to 4 times per year 02/02/2023 Do you belong to any clubs o r organizations such as sabianist groups, unions, fraternal or athletic groups, or school groups? No 02/02/2023 How often do you attend meet ings of the clubs or organizations you belong to? Never 02/02/2023 Are you , , di vorced, , never , or living with a partner? 02/02/2023 AUDIT-C Answer Date Recorded Q1: How often do you have a drink containing alcohol? 4 or more times a week 02/02/2023 Q2: How many drinks containi ng alcohol do you have on a typical day when you are drinking? 1 or 2 Q3: How often do you have si x or more drinks on one occasion? Less than monthly 02/02/2023 Overall Financial Resource Strain (CARDIA) Answe r Date Recorded How hard is it for you to pa y for the very basics like food, housing, medical care, and heating? Not hard at all 02/02/2023 PHQ-2 Answer Date Recorded Patient Health Questionnaire-2 Score 0 10/30/2024 [facility] - Occupational Stress Questionnaire Answer Date Recorded Do you feel stress - tense, restless, nervous, or anxious, or unable to sleep at night because your mind is troubled all the time - these days? To some extent 02/02/2023 Exercise Vital Sign Answer Date Recorde d On average, how many days pe r week do you engage in moderate to strenuous exercise (like a brisk walk)? 5 days 02/02/2023 On average, how many minutes do you engage in exercise at this level? 80 min 02/02/2023 Hunger Vital Sign Answer Date Recorded Within the past 12 months, y ou worried that your food would run out before you got the money to buy more. Never true 02/03/20 23 Within the past 12 months, t he food you bought just didn't last and you didn't have money to get more. Never true 02/02/2023 PRAPARE - Transportation Answer Date Re corded In the past 12 months, has l ack of transportation kept you from medical appointments or from getting medications? No 11/2022 In the past 12 months, has l ack of transportation kept you from meetings, work, or from getting things needed for daily living? No 02/02/2023 Housing Stability Vital Sign Answer Wesley e Recorded In the last 12 months, was t here a time when you were not able to pay the mortgage or rent on time? No 02/02/2023 In the last 12 months, how many places have you lived? 1 02/02/2023 In the last 12 months, was t here a time when you did not have a steady place to sleep or slept in a fdc (including now)? No 02/02/2023 Comments No Sex and Gender Information Value Date Recorded Sex Assigned at Female 10/30/2024 2:28 PM SUBCONTRACT ADMINISTRATOR Legal Sex Female 7:38 PM CDT Gender Identity Female 10/30/2024 2:28 PM SUBCONTRACT ADMINISTRATOR Sexual Orientation Not on file Last Filed Vital Signs Vital Sign Reading Time Taken Comments Blood Pressure 134/76 10/30/2024 2:39 PM SUBCONTRACT ADMINISTRATOR Pulse 99 10/30/2024 2:39 PM SUBCONTRACT ADMINISTRATOR Temperature 36.8 C (98.2 F) 10/30/2024 2:28 PM SUBCONTRACT ADMINISTRATOR Respiratory Rate 22 10/30/2024 2:28 PM SUBCONTRACT ADMINISTRATOR Oxygen Saturation 99% 10/30/2024 2:28 PM SUBCONTRACT ADMINISTRATOR Inhaled Oxygen Concentration - - Weight 54 kg (119 lb) 10/30/2024 2:28 PM SUBCONTRACT ADMINISTRATOR Height 149.9 cm (4' 11) 10/30/2024 2:28 PM SUBCONTRACT ADMINISTRATOR Body Mass Index 24.04 10/30/2024 2:28 PM SUBCONTRACT ADMINISTRATOR Plan of Treatment Health Maintenance Due Date Last Done Comments Annual Physical 1966 Hepatitis C 1981 Pneumococcal Vaccine: 50+ Years (1 of 2 - PCV) 1982 Mammogram Screening 2003 Zoster Vaccines (1 of 2) 2013 COVID-19 Vaccine (4 - 2023-2 5 season) 2024 03/20/2022, 08/14/2021, 11/13/2020 DTaP, Tdap and Td Vaccines ( 2 - Td or Tdap) 01/13/2032 01/12/2022 Colorectal Cancer Screening Colonoscopy (10 Years) 09/29/2034 09/29/2024, 02/10/2023, 02/10/2023 RSV Immunization or 60+ Years (1 - 1-dose 75+ series) 2038 PHQ-2 (Physician [place]) Completed 10/30/2024 Meningococcal B Vaccine Aged Out No l onger eligible based on patient's age to complete this topic Meningococcal Vaccine Aged Out No ana ashwin eligible based on patient's age to complete this topic RSV Immunizations Under 20 Months Aged Out No longer eligible b ased on patient's age to complete this topic Goals Goal Patient Goal Type Associated Problems Recent Progress Patient-Stated? Author Family - family caregiver with be involved in care transitions and discharge planning Lifestyle No Virginia Coffey, C[employer]TER [employer] RE[employer]ER Procedures Procedure Name Priority Date/Time Associated Diagnosis Comments COLONOSCOPY Routine 02/10/2023 8:08 AM CDT from Last 3 Months or Most Recently Relevant to Health Maintenance Insurance [facility] Advance Directives * Full Code (Latest Code Status on File) Date Activated Date Inactivated Comments 02/02/2023 4:52 PM 02/05/2023 2:56 PM Care Teams Language Therapist Relationship Specialty [place] [address] [place] [address] PCP - General Nurse Practitioner Family 02/25/23
[2025-05-21 13:46] LABS: Add Urine Microscopic? NO; Appearance Urine Clear (Clear); Glucose Urine UA Negative (Negative); Leukocyte Esterase Ur Negative LEU/UL (Negative); Nitrate Urine Negative (Negative); Specific Grav Ur 1.010 (1.010-1.020)
[2025-05-21 13:46] LABS: Alanine Aminotransferase 24 U/L (6-35); Albumin Level 4.6 g/dL (3.5-5.1); Alkaline Phosphatase 98 U/L (38-126); Anion Gap 11 mmol/L (4-12); Aspartate Amino Transferase 35 U/L (14-36); Bilirubin,Total 1.1 mg/dL (0.2-1.3); Blood Urea Nitrogen 10 mg/dL (7-17); Calcium 9.4 mg/dL (8.4-10.2); Carbon Dioxide 23 mmol/L (22-30); Chloride 104 mmol/L (98-107); Estimated Glomerular Filt Rate > 60; Glucose 110 mg/dL (65-110); Lipase 64 U/L (23-300); Osmolality Calculated 286 mOsm/kg (285-295); Potassium 4.0 mmol/L (3.4-5.0); Sodium 138 mmol/L (137-145); Total Protein 7.6 g/dL (6.3-8.2)
[2025-05-21 13:47] LABS: INR 0.9; Partial Thromboplastin Time 26.3 Sec (23.9-30.70); Prothrombin Time 10.3 Seconds (9.50-12.1)
[2025-05-21 13:57] LABS: Troponin I < 0.012 ng/mL (0.000-0.034)
--- OUTSIDE RECORDS SUMMARY | 2025-05-21 15:00 | XMS_ITS | Clinical Summary ---
Author Organization [facility] Address [address] [place] [id number] Care Team Providers Care Welder Apprentice Name Role Phone Minal Steele POURED PIPE MAKER Primary Care Provide r Allergies Active Allergy Reactions Criticality Noted Date Comments Hydromorphone Hallucinations Medium 02/23/2023 [place] Hives Medium 02/23/2023 Sulfa (Sulfonamide Antibiotics) Shortness [...] Female Attending MD: Amanda Farr M.D. Room: [facility] ENDOSCOPY ROOM 9 Note Status: Finalized Procedure: [...] procedure by the physician,the nurse and the seed technician. The procedure wasverified in the procedure room. - Immediately prior to administration ofmedications, the patient was re-assessed for adequacy to receive sedatives. The benefits, risks and alternatives of theprocedure and sedation were discussed and informed consentwas obtained. All questions were answered. Please referto the signed informed consent document in the medical record. The scope was passed under direct vision.The CF [id number] endoscope was introduced through the anus and [...] clip was successfully placed (MR conditional). Clip blue prints trimmer: [employer]. There was no bleeding during, or at the end, of the procedure. The exam was otherwise normal throughout the examined colon. Impression: - One 30 mm polyp in the sigmoid colon. Resectedand retrieved. Clip (MR conditional) was placed. Clip blue prints trimmer: [employer]. - The colonoscopy was otherwise normal. Recommendation: - Discharge patient to home. - Await pathology results. - In the unusual situation that you developabdominal pain, bleeding or other significant problems in the days following this procedure please call my officeat [phone] to speak to my nurses. After hours and evenings please call [phone] and speak to theGI fellow photonics engineer. Please tell them that Dr. Farr did your procedure and that your were instructed tohave the fellow call me or the physician covering for meto discuss the management of your condition. If youhave an urgent problem, [facility] and have the ER doctor call my office duringthe day or the GI Fellow after hours and weekends to arrange admission or transfer to our facility. - Call GI office nurse at [phone]) for final pathology results in 7 days - Full liquid diet today then advance the diet. - Repeat colonoscopy in 1 year for surveillance. - Follow up with your physicians as scheduled. Electronically signed by Amanda Farr MD Amanda Farr M.D. 03/15/2023 2:40:58 PM Number of Addenda: 0 Note Initiated On: 03/15/2023 1:34 PM Recognized by the [place] [employer] for promoting quality in endoscopy Amanda Farr MD ENDOSCOPY PROCEDURES Final Resul t from Last 3 Months or Most Recently Relevant to Health Maintenance Insurance [place] [employer] Care Teams Welder Apprentice Relationship Specialty [place] [address] [address] [address] PCP - General Nurse Practitioner 03/11/23
--- NOTE | 2025-05-21 15:01 | PC.NURSE ---
MD still waiting on chest x-ray to be read by radiologist. RN call radiology. Radiology staff states they will get in touch with radiologist to find out what is delaying the read.
== END 2025-05-21 16:39 | disposition home or self-care (01) ==
PROVIDERS: Emergency Provider Emergency Medicine; PCP Nurse Practitioner Family
DX: I47.9 Paroxysmal tachycardia, unspecified (principal); R07.89 Other chest pain; F17.210 Nicotine dependence, cigarettes, uncomplicated
CPT/HCPCS: 36415; 71046; 80053; 81003; 83690; 84484; 85025; 85380; 85610; 85730; 93005; 99284